=== PATIENT | male | born 1980 | race Caucasian/White ===

== ENCOUNTER 2022-03-15 20:00 | Outpatient (CLI) | payer OTHER, SELFPAY | END 2022-03-15 20:01 | disposition home or self-care (01) | LOC: SLEEP 03-16 06:24 | PROVIDERS: Visit Provider Emergency Medicine Emergency Medical Services | DX: G47.30 Sleep apnea, unspecified (principal) | CPT/HCPCS: 95810 ==

== ENCOUNTER 2022-04-03 08:01 | Day surgery (SDC) | payer OTHER, SELFPAY ==
[2022-03-30 10:24] VITALS: BMI 37.5
--- NOTE | 2022-04-03 08:10 | P.HP_ITS ---
Same Day Surgery H&P Indication for Procedure/HPI DATE OF PROCEDURE: April 03, 2022 CHIEF COMPLAINT/INDICATIONFOR SURGICAL PROCEDURE: Dysphagia PREOP DIAGNOSIS: Dysphagia PLANNED PROCEDURE: Operation Date: 04/03/22 09:45 Proposed Procedures p EGD 00968/R13.10(Not Applicable) - Parth Cole MD Medications/Allergies* Home Medications Medication Instructions Recorded Confirmed Type calcium carbonate 300 mg (750 mg) 300 mg PO .2 as needed tab 03/21/22 03/30/22 History chewable tablet (Tums) Allergies/Adverse Reactions Allergy/AdvReac Type Severity Reaction Status Date / Time No Known Allergies Allergy Verified 03/30/22 10:22 Pertinent History/Comorbid Conditions* Family History (Updated 03/21/22 @ 14:09 by Calli Orlando) Blood clot in vein Father Social History Smoking and tobacco status: former smoker Alcohol intake: current Alcohol intake frequency: holidays/special occasions only Pertinent Exam Findings alert, oriented x 3, clear to auscultation bilaterally, regular rate & rhythm, operative site marked and procedure specific exam findings Recommendations Surgery/Procedure today Coding Level of Care Code Acute Air Twister Winder for Kaylin Gonzalez
[2022-04-03 08:15] VITALS: BP 132/77; PULSE 67; RESP 18; TEMP 36.1; O2SAT 96
[2022-04-03] MEDS: sodium chloride 0.9% 1,000 ML 30 ML IV (08:22)
--- NOTE | 2022-04-03 08:57 | ANES.PREANE2 ---
Pre-Anesthetic Assessment Height/Weight: Height 1.75 m Weight 115.212 kg Temp Pulse Resp BP Pulse Ox 97.0 F L 67 18 132/77 96 04/03/22 08:15 04/03/22 08:15 04/03/22 08:15 04/03/22 08:15 04/03/22 08:15 Preop Diagnosis: dysphagia Operation Date: 04/03/22 09:45 Proposed Procedures p EGD 97279/R13.10(Not Applicable) - Parth Cole MD Familial anesthetic complications: none Was Beta Yuly taken within 24 hours: N/A Was Clonidine taken within 24 hours: N/A Last intake: Intake Last Liquid Date 04/02/22 Last Liquid Time 21:00 Last Solid Date 04/02/22 Last Solid Time 21:00 Social No alcohol and No tobacco Exam alert, oriented x 3, clear to auscultation bilaterally and regular rate & rhythm Airway Mallampati: Class II Dentition: other (missing) Pulmonary None reported CV/HEM None reported None reported Hepatic None reported GI Gastroesophageal Reflux Disease Metabolic None reported Musc/skel None reported Neuropsych None reported Anesthetic Plan ASA status: 2 Anesthesia: MAC Risk of > 500 ml blood loss (7ml/kg in children): No Medications/Allergies Home Medications Medication Instructions Recorded Confirmed Last Taken Type calcium carbonate 300 mg (750 mg) 300 mg PO .2 as needed tab 03/21/22 04/03/22 04/02/22 History chewable tablet (Tums) pantoprazole 40 mg tablet,delayed 40 mg PO QAM #90 tab 03/21/22 04/03/22 04/02/22 Rx release Allergies Allergy/AdvReac Type Severity Reaction Status Date / Time No Known Allergies Allergy Verified 03/30/22 10:22 Current Medications Generic Name Dose Route Start Last Admin Trade Name Freq PRN Reason Stop Dose Admin Sodium Chloride 1,000 mls @ 30 mls/hr 04/03/22 08:15 04/03/22 08:22 Sodium Chloride 0.9% IV 30 mls/hr .Q24H SALLY Administration PFSH Anesthesia Family History (Updated 03/21/22 @ 14:10 by Calli Orlando) Father Blood clot in vein Social History (Updated 03/21/22 @ 14:10 by Calli Orlando) Smoking and tobacco status: former smoker Alcohol intake: current Alcohol intake frequency: holidays/special occasions only Data Anesthesia Cardiac Studies: No Data to Display
[2022-04-03 10:19] VITALS: BP 116/81; PULSE 67; RESP 16; TEMP 36.2; O2SAT 97
[2022-04-03 10:29] VITALS: BP 116/74; PULSE 73; RESP 16; O2SAT 97
--- NOTE | 2022-04-03 14:09 | ANE.PACU2 ---
Inpatient post-anesthesia follow up: Airway intact: Yes Vital signs: Temperature 97.1 F Pulse Rate 73 Respiratory Rate 16 Blood Pressure 116/74 Pulse Oximetry 97 Oxygen Delivery Me thod Room Air Oxygen Flow Rate 2 Fraction of Inspir ed Oxygen Hydration adequate: Yes Nausea and vomiting: No Pain level: 1 Mental status: Baseline
[2022-04-04 06:07] LABS: H. Pylori / CLO Test Negative
== END 2022-04-03 10:47 | disposition home or self-care (01) ==
PROVIDERS: PCP Emergency Medicine Emergency Medical Services; Visit Provider Internal Medicine
PROC: 0DJ08ZZ Inspection of Upper Intestinal Tract, Via Natural or Artificial Opening Endoscopic (ICD-10-PCS; CPT 43235; principal; 2022-04-03 09:45)
DX: R13.10 Dysphagia, unspecified (principal); Z87.891 Personal history of nicotine dependence; K21.9 Gastro-esophageal reflux disease without esophagitis
CPT/HCPCS: 43239; 87077; J2704; J7030

== ENCOUNTER 2022-04-25 20:00 | Outpatient (CLI) | payer OTHER, SELFPAY | END 2022-04-25 20:01 | disposition home or self-care (01) | LOC: SLEEP 04-26 08:20 | PROVIDERS: PCP Emergency Medicine Emergency Medical Services; Visit Provider Emergency Medicine Emergency Medical Services | DX: G47.33 Obstructive sleep apnea (adult) (pediatric) (principal) | CPT/HCPCS: 95811 ==

== ENCOUNTER 2023-07-11 15:07 | Emergency (ER) | payer OTHER, SELFPAY ==
[2023-07-11 15:14] VITALS: BP 128/95; PULSE 88; RESP 16; TEMP 36.6; O2SAT 98; BMI 38.4
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
== END 2023-07-11 18:03 | disposition home or self-care (01) ==
PROVIDERS: Emergency Provider Emergency Medicine; PCP Emergency Medicine Emergency Medical Services
DX: S50.812A Abrasion of left forearm, initial encounter (principal); S20.411A Abrasion of right back wall of thorax, initial encounter; Z87.891 Personal history of nicotine dependence; S20.219A Contusion of unspecified front wall of thorax, initial encounter; V69.9XXA Occupant (driver) (passenger) of heavy transport vehicle injured in unspecified traffic accident, initial encounter
CPT/HCPCS: 71046; 99283

== ENCOUNTER → 2024-03-06 07:57 | Outpatient (BNVA) | payer OTHER, SELFPAY | PROVIDERS: PCP Emergency Medicine Emergency Medical Services; Visit Provider Physician Assistant | DX: M75.41 Impingement syndrome of right shoulder; M75.21 Bicipital tendinitis, right shoulder | CPT/HCPCS: 20610; 73030; 99203; J3301 ==

== ENCOUNTER → 2024-05-08 08:09 | Outpatient (BNVA) | payer OTHER, SELFPAY | PROVIDERS: PCP Emergency Medicine Emergency Medical Services; Visit Provider Physician Assistant | DX: M75.41 Impingement syndrome of right shoulder (principal); M75.21 Bicipital tendinitis, right shoulder | CPT/HCPCS: 99213 ==

== ENCOUNTER 2024-05-13 06:00 | Outpatient (RCR) | payer OTHER, SELFPAY | END 2024-05-28 23:59 | disposition home or self-care (01) | LOC: WPT 06:00 | PROVIDERS: Visit Provider Physician Assistant | DX: M75.21 Bicipital tendinitis, right shoulder (principal) | CPT/HCPCS: 97110; 97112; 97140; 97161; 97530 ==

== ENCOUNTER 2024-05-29 06:00 | Outpatient (RCR) | payer OTHER, SELFPAY | END 2024-06-28 23:59 | disposition home or self-care (01) | LOC: WPT 06:00 | PROVIDERS: Visit Provider Physician Assistant | DX: M75.21 Bicipital tendinitis, right shoulder (principal) | CPT/HCPCS: 97110; 97112; 97140; 97530 ==

== ENCOUNTER 2024-06-06 07:52 | Outpatient (CLI) | payer OTHER, SELFPAY ==
--- NOTE | 2024-06-06 08:00 | MR_ITS ---
WS: [id number] MRI RIGHT SHOULDER NONCONTRAST TECHNIQUE: Sagittal T2, coronal T1, T2 and proton density imaging. Axial gradient PDE imaging. CLINICAL INFORMATION: right rotator cuff impingement COMPARISON: None. FINDINGS: Severe degenerative arthritis AC joint. This is advanced for a patient this age. Associated fluid and edema. Small amount of subacromial subdeltoid fluid. Subacromial spurring. Impingement on the distal supraspinatus. Moderate degenerative arthritis of the glenohumeral articulation. Narrowing of the tellez bacromial space. Tendinopathy distal supraspinatus with chronic thinning. Small insertional tear dist al supraspinatus. No retraction. Normal infraspinatus. Normal teres minor. Normal subscapularis. Biceps tendon appears intact within t he bicipital groove. Intra-articular biceps tendon appears intact with tendinopathy and increased int rasubstance signal compatible with partial tear. Normal bone marrow signal in the humerus and glenoid . Small subcoracoid effusion. Biceps labral anchor appears intact. MR/MR shoulder RT wo con* [id number] IMPRESSION: 1. Severe degenerative arthritis AC joint advanced for patient this age with s ubacromial spurring. 2. Impingement distal supraspinatus with tendinopathy and chronic thinning. Sm all insertional tear. No tendon retraction. 3. Rotator cuff is otherwise intact. 4. Biceps tendon intact within the bicipital groove. 5. Tendinopathy with partial tear intra-articular biceps tendon. 6. Glenoid labrum appears grossly normal. 7. Small subcoracoid effusion.
== END 2024-06-06 07:53 | disposition home or self-care (01) ==
LOC: RAD 07:52
PROVIDERS: Visit Provider Physician Assistant
DX: M75.41 Impingement syndrome of right shoulder (principal); M75.21 Bicipital tendinitis, right shoulder; M19.011 Primary osteoarthritis, right shoulder; M75.91 Shoulder lesion, unspecified, right shoulder
CPT/HCPCS: 73221

== ENCOUNTER 2024-06-29 06:00 | Outpatient (RCR) | payer OTHER, SELFPAY | END 2024-07-28 23:59 | disposition home or self-care (01) | LOC: WPT 06:00 | PROVIDERS: Visit Provider Physician Assistant | DX: M75.21 Bicipital tendinitis, right shoulder (principal) | CPT/HCPCS: 97110 ==

== ENCOUNTER 2024-07-29 06:00 | Outpatient (RCR) | payer OTHER, SELFPAY | END 2024-08-28 23:59 | disposition home or self-care (01) | LOC: WPT 06:00 | PROVIDERS: Visit Provider Physician Assistant | DX: M75.21 Bicipital tendinitis, right shoulder (principal) | CPT/HCPCS: 97110 ==

== ENCOUNTER → 2024-10-03 10:11 | Outpatient (BNVA) | payer OTHER, SELFPAY | PROVIDERS: Visit Provider Student in an Organized Health Care Education/Training Program | DX: M75.21 Bicipital tendinitis, right shoulder (principal); M75.41 Impingement syndrome of right shoulder | CPT/HCPCS: 99213 ==

== ENCOUNTER → 2025-03-16 07:51 | Outpatient (BNVA) | payer OTHER, SELFPAY | PROVIDERS: PCP Nurse Practitioner Family; Visit Provider Podiatrist Foot & Ankle Surgery | DX: M25.571 Pain in right ankle and joints of right foot (principal); M25.572 Pain in left ankle and joints of left foot; G89.29 Other chronic pain; M25.371 Other instability, right ankle; M25.372 Other instability, left ankle; M19.071 Primary osteoarthritis, right ankle and foot; M19.072 Primary osteoarthritis, left ankle and foot | CPT/HCPCS: 73610; 99204 ==

== ENCOUNTER → 2025-04-27 08:17 | Outpatient (BNVA) | payer OTHER, SELFPAY | PROVIDERS: PCP Nurse Practitioner Family; Visit Provider Podiatrist Foot & Ankle Surgery | DX: M25.371 Other instability, right ankle (principal); M25.372 Other instability, left ankle; M19.071 Primary osteoarthritis, right ankle and foot; M19.072 Primary osteoarthritis, left ankle and foot | CPT/HCPCS: 99213 ==

== ENCOUNTER → 2025-07-20 07:27 | Outpatient (BNVA) | payer OTHER, SELFPAY | PROVIDERS: PCP Nurse Practitioner Family; Visit Provider Podiatrist Foot & Ankle Surgery | DX: M25.371 Other instability, right ankle (principal); M25.372 Other instability, left ankle; M19.071 Primary osteoarthritis, right ankle and foot; M19.072 Primary osteoarthritis, left ankle and foot | CPT/HCPCS: 99213 ==